=== PATIENT | male | born 1955 | race Hispanic/Latino ===

== ENCOUNTER → 2025-08-06 | Outpatient (CLI) | payer OTHER, MEDICARE ==
[~2025-08-06] MED LIST: IOHEXOL-350 75 ML VIAL IV ONE
--- NOTE | 2025-08-06 20:01 | HMCIMG ---
STUDY: CT Abdomen and Pelvis With and Without IV Contrast. 7min Renal HISTORY: Hepatomegaly, . TECHNIQUE: Axial computed tomography of the abdomen and pelvis performed with noncontrast and post-contrast acquisitions. Coronal and sagittal reformations were generated. CT dose-length product: 2514 mGy???cm. COMPARISON: None provided. FINDINGS: Lung Bases: Mild dependent basal atelectasis, right greater than left. No pleural effusion. Liver: Liver measures 16 cm in craniocaudal dimension, compatible with mild hepatomegaly. Diffuse hepatic steatosis is present. No focal hepatic lesion is identified. Gallbladder and Bile Ducts: Gallbladder normal in size and contour without radiopaque calculi. No biliary ductal dilatation. Pancreas: Parenchyma normal in size and enhancement. No focal lesion or ductal dilatation. Spleen: Measures 15 cm, compatible with mild splenomegaly. Parenchyma homogeneous. Adrenal Glands: Normal bilaterally. Kidneys, Ureters, and Bladder: Kidneys normal in size and enhancement. No hydronephrosis or hydroureter. A 0.3 cm calculus is present in the left lower pole. Subtle bilateral perinephric fat stranding is noted, nonspecific. Urinary bladder unremarkable. Stomach and Bowel: No gastric wall thickening.Segmental wall thickening involving the sigmoid colon and rectosigmoid junction measures up to 1.0 cm with associated pericolonic fat stranding. Wall thickening also involves the terminal ileum, ileocecal junction, cecum, and ascending colon up to 0.6 cm with adjacent pericecal fat stranding. No evidence of bowel obstruction. Appendix: Measures 0.6 cm with no periappendiceal fat stranding or other CT features of acute appendicitis. Peritoneum: No free fluid or free intraperitoneal air. Lymph Nodes: Right iliac fossa mesenteric lymph nodes are mildly enlarged, measuring up to 1.0 cm, consistent with mesenteric lymphadenitis. No retroperitoneal or mesenteric bulky lymphadenopathy. Reproductive Organs: Prostate enlarged, estimated volume approximately 60 cc, with intraprostatic calcifications. Vasculature: Aorta and major abdominal vessels are normal in caliber. No aneurysm. Hernias: Fat-containing left indirect inguinal hernia without complication. Bones: Mild degenerative thoracolumbar spondylosis. No acute osseous abnormality or aggressive lesion. IMPRESSION: * Segmental colonic wall thickening involving the sigmoid colon and rectosigmoid junction with associated pericolonic fat stranding, compatible with colitis in this distribution; additional mural thickening of the terminal ileum, ileocecal junction, cecum, and ascending colon with pericecal fat stranding, suggesting a more extensive inflammatory or infectious enterocolitis. * Mild mesenteric lymphadenitis in the right iliac fossa, likely reactive. * Mild hepatomegaly with hepatic steatosis and mild splenomegaly. * Left renal lower-pole calculus (0.3 cm). Subtle bilateral perinephric fat stranding is nonspecific. * Enlarged prostate (?60 cc) with calcifications. * Uncomplicated left fat-containing indirect inguinal hernia. /[place]
== END | disposition home or self-care (01) ==
LOC: RAH 10:23
PROVIDERS: ATTEND Family Medicine
DX: K76.0 Fatty (change of) liver, not elsewhere classified (principal); N20.0 Calculus of kidney; K40.90 Unilateral inguinal hernia, without obstruction or gangrene, not specified as recurrent; M47.815 Spondylosis without myelopathy or radiculopathy, thoracolumbar region; J98.11 Atelectasis; R79.89 Other specified abnormal findings of blood chemistry; R16.2 Hepatomegaly with splenomegaly, not elsewhere classified; I88.0 Nonspecific mesenteric lymphadenitis
CPT/HCPCS: 74178; Q9967